=== PATIENT | female | born 1970 | race Caucasian/White ===

== ENCOUNTER 2024-01-08 06:47 | Day surgery (SDC) | payer OTHER, SELFPAY ==
[2024-01-08 12:33] VITALS: BMI 20.6
[2024-01-08 14:24] VITALS: BP 104/87
[2024-01-08 14:30] VITALS: BP 100/61
== END 2024-01-08 15:14 | disposition home or self-care (01) ==
LOC: SDS 06:47
PROVIDERS: ATTENDING PHYSICIAN Internal Medicine Gastroenterology
DX: K31.89 Other diseases of stomach and duodenum (principal); Q45.3 Other congenital malformations of pancreas and pancreatic duct
CPT/HCPCS: 43251; 43237; 88305